=== PATIENT | female | born 1990 | race Caucasian/White ===

== ENCOUNTER 2018-06-24 16:25 | Emergency (ER) | payer OTHER, BC ==
[~2018-06-24] VITALS: Ht 154.9 cm; Wt 69.4 kg
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
--- NOTE | 2018-06-24 16:45 | NUR ---
DR. HUDDLESTON AT BEDSIDE FOR EVAL.
[2018-06-24] MEDS ORDERED: HYDROCODONE/APAP 5/325MG 1 EACH TABLET ONE (16:51)
[2018-06-24] MEDS ORDERED: HYDROCODONE/APAP 5/325MG 1 EACH TABLET PO ONE (17:00)
--- NOTE | 2018-06-24 17:12 | NUR ---
PATIENT WHEELED TO XRAY VIA [facility].
--- NOTE | 2018-06-24 17:25 | NUR ---
PT CAME BACK FROM XRAY.
[2018-06-24 18:22] VITALS: BP 116/70
--- NOTE | 2018-06-24 18:23 | NUR ---
Patient discharged to home in stable condition. Written and verbal after care instructions given. Patient verbalizes understanding of instruction.
== END 2018-06-24 18:22 | disposition home or self-care (01) ==
LOC: ER 16:41
DX: S06.0X0A Concussion without loss of consciousness, initial encounter (principal); S60.221A Contusion of right hand, initial encounter; S20.212A Contusion of left front wall of thorax, initial encounter; R51 Headache; Z60.2 Problems related to living alone; Z88.9 Allergy status to unspecified drugs, medicaments and biological substances; V49.49XA Driver injured in collision with other motor vehicles in traffic accident, initial encounter; Y93.89 Activity, other specified; Y92.410 Unspecified street and highway as the place of occurrence of the external cause; Y99.8 Other external cause status
CPT/HCPCS: 70450; 71045; 99284; A4606; Z7610

== ENCOUNTER 2018-10-15 15:34 | Emergency (ER) | payer BC, MEDICAID, OTHER ==
[~2018-10-15] VITALS: Ht 154.9 cm; Wt 62.6 kg
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
--- NOTE | 2018-10-15 16:00 | NUR ---
PA DEGRASSE AT BEDSIDE
[2018-10-15 16:21] LABS: BASOPHILS % (AUTO) 0.6 % (0.0-2.0); EOSINOPHILS % (AUTO) 0.3 % (0.0-6.0); HEMATOCRIT 42 % (33-45); LYMPHOCYTES # (AUTO) 0.7 /CMM (0.8-4.8); MEAN CORPUSCULAR HGB CONC 33 g/dl (31.0-36.0); MEAN CORPUSCULAR VOLUME 91 fL (82-100); MONOCYTES # (AUTO) 0.4 /CMM (0.1-1.30); MONOCYTES % (AUTO) 14.5 % (2.0-12.0); NEUTROPHILS # (AUTO) 1.4 /CMM (1.8-8.9); NEUTROPHILS % (AUTO) 55.6 % (43.0-81.0); PLATELET COUNT (AUTO) 148 /CMM (150-450); WHITE BLOOD COUNT (AUTO) 2.5 K/uL (4.3-11.0)
[2018-10-15 16:27] LABS: CREATININE 0.9 mg/dL (0.6-1.3); POTASSIUM 3.7 mmol/L (3.5-5.1)
[2018-10-15] MEDS ORDERED: IV NS 0.9% 1,000 ML BAG IV ONE (16:30)
[2018-10-15] MEDS ORDERED: IBUPROFEN 600 MG TABLET PO ONE ×2 (16:47→17:00)
[2018-10-15] MEDS ORDERED: ACETAMINOPHEN ES 500 MG TABLET ONE (16:47)
[2018-10-15] MEDS ORDERED: ACETAMINOPHEN ES 500 MG TABLET PO ONE (17:00)
[2018-10-15] MEDS ORDERED: ONDANSETRON HCL/PF 4 MG/2 ML VIAL IV ONE (17:00)
[2018-10-15 17:07] LABS: APPEARANCE,URINE Clear (CLEAR); BILIRUBIN,URINE SMALL (NEGATIVE); BLOOD, URINE Large Ery/uL (NEGATIVE); COLOR,URINE Yellow (YELLOW); KETONES,URINE 15 (NEGATIVE); LEUKOCYTE ESTERASE ,URINE Negative (NEGATIVE); NITRITE, URINE Negative (NEGATIVE); PH,URINE 6.5 (5.0-8.0); PROTEIN,URINE 30 mg/dl (NEGATIVE); UGLUCOSE Negative (NEGATIVE); UROBILINOGEN,URINE 0.2 EU/dL (0.2)
[2018-10-15 17:18] LABS: BACTERIA,URINE 1+ /HPF (None Seen); RBC,URINE 21-50 /HPF (0-2); SQUAMOUS EPITHELIAL CELL,UR Many /HPF (None Seen); WBC,URINE 0-2 /HPF (0-3)
[2018-10-15] MEDS ORDERED: ONDANSETRON HCL/PF 4 MG/2 ML VIAL ONE (17:30)
[2018-10-15 17:55] LABS: BAND % (MANUAL) 2 % (0.0-5.0); LYMPHOCYTES % (MANUAL) 31 % (16-48); MONOCYTES % (MANUAL) 6 % (0-11.0); NEUTROPHILS % (MANUAL) 61 (42-76)
--- NOTE | 2018-10-15 18:23 | NUR ---
IV removed. Catheter intact and site benign. Pressure and 4x4 applied to site. No bleeding noted.Patient discharged to home in stable condition. Written and verbal after care instructions given. Patient verbalizes understanding of instruction.
[2018-10-15 18:32] VITALS: BP 110/65
== END 2018-10-15 18:34 | disposition home or self-care (01) ==
LOC: ER 15:39
DX: J11.1 Influenza due to unidentified influenza virus with other respiratory manifestations (principal); H66.91 Otitis media, unspecified, right ear; R19.7 Diarrhea, unspecified; J45.909 Unspecified asthma, uncomplicated; Z60.2 Problems related to living alone; Z88.9 Allergy status to unspecified drugs, medicaments and biological substances
CPT/HCPCS: 36415; 80048; 81001; 84703; 85025; 96361; 96374; 99283; J2405; J7030; 81000-TC

== ENCOUNTER 2021-04-03 12:11 | Emergency (ER) | payer MEDICAID, OTHER ==
[~2021-04-03] VITALS: Ht 154.9 cm; Wt 72.6 kg
[2021-04-03 12:30] VITALS: BP 100/62
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
[2021-04-03] MEDS ORDERED: IV NS 0.9% 1,000 ML BAG IV ONE (13:00)
[2021-04-03] MEDS ORDERED: DESO60CR12 TP (13:29)
[2021-04-03 13:34] LABS: BASOPHILS % (AUTO) 0.5 % (0.0-2.0); EOSINOPHILS % (AUTO) 4.6 % (0.0-6.0); HEMATOCRIT 31 % (33-45); LYMPHOCYTES # (AUTO) 0.8 K/uL (0.8-4.8); LYMPHOCYTES % (AUTO) 9.3 % (20.0-44.0); MEAN CORPUSCULAR HGB CONC 33 g/dl (31.0-36.0); MEAN CORPUSCULAR VOLUME 85 fL (82-100); MONOCYTES # (AUTO) 0.3 K/uL (0.1-1.30); MONOCYTES % (AUTO) 3.9 % (2.0-12.0); NEUTROPHILS # (AUTO) 6.6 K/uL (1.8-8.9); NEUTROPHILS % (AUTO) 81.7 % (43.0-81.0); PLATELET COUNT (AUTO) 221 K/uL (150-450); RED BLOOD CELL COUNT(AUTO) 3.59 MIL/uL (4.0-5.2); WHITE BLOOD COUNT (AUTO) 8.1 K/uL (4.3-11.0)
[2021-04-03 13:59] LABS: CALCIUM, SERUM 7.2 mg/dL (8.5-10.1); CREATININE 0.7 mg/dL (0.6-1.3); POTASSIUM 3.4 mmol/L (3.5-5.1)
== END 2021-04-03 15:51 | disposition home or self-care (01) ==
LOC: ER 12:47
DX: L23.7 Allergic contact dermatitis due to plants, except food (principal); E86.0 Dehydration; Z88.8 Allergy status to other drugs, medicaments and biological substances; Z60.2 Problems related to living alone; Z79.899 Other long term (current) drug therapy
CPT/HCPCS: 36415; 80048; 82040; 84702; 85025; 96360; 99283; J7030

== ENCOUNTER 2021-11-30 06:22 | Emergency (ER) | payer OTHER ==
[~2021-11-30] VITALS: Ht 154.9 cm; Wt 74.8 kg
[~2021-11-30 06:22] MED LIST: DESO60CR12 TP
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
[2021-11-30] MEDS ORDERED: ONDANSETRON HCL/PF 4 MG/2 ML VIAL ONE (07:11)
--- NOTE | 2021-11-30 07:20 | NUR ---
20g IV LINE ESTABLISHED AT [facility]. BLOOD DRAWN AND SENT TO LAB. URINE AND RAPID STREP COLLECTED AND SENT TO LAB.
[2021-11-30 07:26] LABS: BASOPHILS # (AUTO) 0.1 K/uL (0.0-0.2); BASOPHILS % (AUTO) 0.6 % (0.0-2.0); EOSINOPHILS % (AUTO) 0.1 % (0.0-6.0); HEMATOCRIT 40 % (33-45); HEMOGLOBIN 13.2 g/dL (11.5-14.8); LYMPHOCYTES # (AUTO) 0.4 K/uL (0.8-4.8); LYMPHOCYTES % (AUTO) 2.8 % (20.0-44.0); MEAN CORPUSCULAR HGB CONC 33 g/dl (31.0-36.0); MEAN CORPUSCULAR VOLUME 85 fL (82-100); MONOCYTES # (AUTO) 0.6 K/uL (0.1-1.30); MONOCYTES % (AUTO) 4.3 % (2.0-12.0); NEUTROPHILS # (AUTO) 12.9 K/uL (1.8-8.9); NEUTROPHILS % (AUTO) 92.2 % (43.0-81.0); PLATELET COUNT (AUTO) 267 K/uL (150-450); RED BLOOD CELL COUNT(AUTO) 4.65 MIL/uL (4.0-5.2); WHITE BLOOD COUNT (AUTO) 13.9 K/uL (4.3-11.0)
[2021-11-30 07:28] LABS: BILIRUBIN,URINE NEGATIVE (NEGATIVE); COLOR,URINE YELLOW (YELLOW); LEUKOCYTE ESTERASE ,URINE NEGATIVE (NEGATIVE); NITRITE, URINE NEGATIVE (NEGATIVE); PH,URINE 8.5 (5.0-8.0); PROTEIN,URINE 30 mg/dl (NEGATIVE); UGLUCOSE NEGATIVE (NEGATIVE); UROBILINOGEN,URINE 0.2 EU/dL (0.2)
[2021-11-30] MEDS ORDERED: ONDANSETRON HCL/PF 4 MG/2 ML VIAL IVP ONE (07:30)
[2021-11-30 07:47] LABS: BACTERIA,URINE Moderate /HPF (None Seen); RBC,URINE 0-2 /HPF (0-2); SQUAMOUS EPITHELIAL CELL,UR Moderate /HPF (None Seen); WBC,URINE 0-2 /HPF (0-3)
[2021-11-30 07:48] LABS: CALCIUM, SERUM 8.8 mg/dL (8.5-10.1); POTASSIUM 3.8 mmol/L (3.5-5.1)
[2021-11-30 07:54] LABS: BILIRUBIN,DIRECT 0.2 mg/dL (0.0-0.2); BILIRUBIN,TOTAL 0.9 mg/dL (0.2-1.0); TOTAL PROTEIN, SERUM 8.4 g/dL (6.4-8.2)
[2021-11-30] MEDS ORDERED: TRAM50TA2 PO (09:42)
[2021-11-30] MEDS ORDERED: ONDA4TAB5 PO (09:42)
[2021-11-30 10:31] VITALS: BP 109/66
--- NOTE | 2021-11-30 10:31 | NUR ---
Patient discharged to home in stable condition. Written and verbal after care instructions given. Patient verbalizes understanding of instruction.IV removed. Catheter intact and site benign. Pressure and 4x4 applied to site. No bleeding noted.
== END 2021-11-30 10:31 | disposition home or self-care (01) ==
LOC: ER 06:22
DX: J03.90 Acute tonsillitis, unspecified (principal); Z20.822 Contact with and (suspected) exposure to COVID-19; D72.829 Elevated white blood cell count, unspecified
CPT/HCPCS: 36415; 70490; 80048; 80076; 81001; 83690; 84703; 85025; 87070; 87086; 87880; 96374; 99284; C9803; J2405; U0003; 86403-TC